=== PATIENT | female | born 1945 | race Caucasian/White ===

== ENCOUNTER 2021-08-01 00:25 | Inpatient (IN) | payer MEDICARE, BC ==
[2021-08-01] MEDS ORDERED: Naloxone 0.4 MG/ML SDV IVPUSH PRN (01:07)
[2021-08-01] MEDS ORDERED: Ondansetron 4 MG/2 ML SDV IVPUSH PRN (01:07)
[2021-08-01] MEDS ORDERED: diphenhydrAMINE 25 MG Cap PO PRN (01:07)
[2021-08-01] MEDS ORDERED: diphenhydrAMINE 50 MG/ML SDV IVPUSH PRN ×2 (01:07→13:00)
[2021-08-01] MEDS ORDERED: HYDROmorphone/Normal Saline 15 MG/30 ML PCA IV SCH (01:15)
[2021-08-01] MEDS: Dextrose 5%-Lactated Ringers 1,000 ML IV SCH ×3 (01:20→22:09)
[2021-08-01] MEDS ORDERED: Bupivacaine 0.5% 50 ML MDV ONE (06:45)
[2021-08-01] MEDS ORDERED: Lidocaine 1% with EPINEPHrine 1:100,000 50 ML MDV ONE (06:45)
[2021-08-01] MEDS ORDERED: Meropenem 500 MG SDV ONE (06:45)
[2021-08-01] MEDS ORDERED: HYDROmorphone/Normal Saline 15 MG/30 ML PCA IV PRN (07:33)
[2021-08-01] MEDS ORDERED: fentaNYL 250 MCG/5 ML SDV ONE ×2 (07:49→10:13)
[2021-08-01] MEDS ORDERED: Glycopyrrolate 0.2 MG/ML 5 ML MDV ONE (07:50)
[2021-08-01] MEDS ORDERED: Propofol 200 MG/20 ML SDV ONE (07:50)
[2021-08-01] MEDS ORDERED: Dexamethasone 4 MG/ML SDV ONE (07:50)
[2021-08-01] MEDS ORDERED: Ondansetron 4 MG/2 ML SDV ONE (07:50)
[2021-08-01] MEDS ORDERED: Rocuronium 50 MG/5 ML Vial ONE (07:50)
[2021-08-01] MEDS ORDERED: Succinylcholine 200 MG/10 ML MDV ONE (07:50)
[2021-08-01] MEDS ORDERED: Neostigmine Methylsulfate 1 MG/ML 5 ML Syringe ONE (07:50)
[2021-08-01] MEDS ORDERED: Propranolol 60 MG Cap.ER PO ONE (08:00)
[2021-08-01] MEDS ORDERED: Naloxone 0.4 MG/ML SDV IV PRN (08:00)
[2021-08-01] MEDS ORDERED: Ketamine 15 MG in Sodium Chloride 0.9% 19.85 ML IV SCH (09:00)
[2021-08-01] MEDS ORDERED: Magnesium Sulfate 2.6 GM in Sodium Chloride 0.9% 100 ML IV SCH (09:00)
[2021-08-01] MEDS ORDERED: Ketamine 500 MG/5 ML MDV IV SCH (09:00)
[2021-08-01] MEDS ORDERED: Albuterol/Ipratropium 3.0-0.5 MG/3 ML Neb Soln INH ONE (09:00)
[2021-08-01] MEDS ORDERED: Magnesium Sulfate 2.8 GM in Sodium Chloride 0.9% 250 ML IV ONE (09:00)
[2021-08-01] MEDS: cefOXitin 2 GM in Sodium Chloride 0.9% 50 ML IV ONE ×2 (10:05→11:28)
[2021-08-01] MEDS ORDERED: Lactated Ringers 1,000 ML ONE (10:38)
[2021-08-01] MEDS ORDERED: hydrOXYzine HCL 100 MG/2 ML SDV IM PRN (13:00)
[2021-08-01] MEDS ORDERED: Labetalol 20 MG/4 ML Syringe IVPUSH PRN (13:00)
[2021-08-01] MEDS ORDERED: Calcium Gluconate 10% 1 GM/10 ML SDV IVPUSH PRN (13:00)
[2021-08-01] MEDS ORDERED: Acetaminophen 500 MG Tab PO PRN (13:00)
[2021-08-01] MEDS ORDERED: Metoclopramide 10 MG/2 ML SDV IVPUSH PRN (13:00)
[2021-08-01] MEDS: Albuterol/Ipratropium 3.0-0.5 MG/3 ML Neb Soln INH SCH ×2 (14:32→21:29)
[2021-08-01] MEDS: Acetaminophen 500 MG Tab PO SCH ×2 (14:42→21:23)
[2021-08-01] MEDS ORDERED: Pantoprazole 40 MG Vial IVPUSH SCH (16:00)
[2021-08-01] MEDS ORDERED: MVI, Adult with Vitamin K 10 ML, Thiamine 200 MG, Zinc/Copper/Manganese/Selenium 1 ML i... IV SCH ×4 (16:00)
[2021-08-01] MEDS: cefOXitin 2 GM in Sodium Chloride 0.9% 50 ML IV SCH ×2 (16:12→22:11)
[2021-08-01] MEDS: Cyclobenzaprine 10 MG Tab PO PRN (16:18)
[2021-08-01] MEDS: Heparin Sodium 5,000 Units/ML Vial SUBCUT SCH (18:14)
[2021-08-01] MEDS ORDERED: Lactated Ringers 500 ML IV SCH (19:30)
[2021-08-01] MEDS ORDERED: Lactated Ringers 500 ML IV ONE (19:40)
[2021-08-02] MEDS ORDERED: Lactated Ringers 500 ML IV ONE (02:40)
[2021-08-02] MEDS ORDERED: Iopamidol 612 MG/ML 50 ML SDV PO STA (03:22)
[2021-08-02] MEDS ORDERED: Nicotine 14 MG/24 Hr Patch TRDERM PRN (03:31)
[2021-08-02] MEDS: cefOXitin 2 GM in Sodium Chloride 0.9% 50 ML IV SCH ×4 (04:25→21:46)
[2021-08-02] MEDS: Heparin Sodium 5,000 Units/ML Vial SUBCUT SCH ×2 (06:19→17:58)
[2021-08-02] MEDS: Acetaminophen 500 MG Tab PO SCH ×3 (06:19→21:44)
[2021-08-02] MEDS: Albuterol/Ipratropium 3.0-0.5 MG/3 ML Neb Soln INH SCH ×4 (07:00→21:44)
[2021-08-02] MEDS: Celecoxib 200 MG Cap PO SCH ×2 (08:52→21:46)
[2021-08-02] MEDS: Docusate Sodium 100 MG Cap PO SCH ×2 (08:53→21:46)
[2021-08-02] MEDS: Bisacodyl 5 MG Tab PO SCH ×2 (08:55→21:44)
[2021-08-02] MEDS: Aspirin 81 MG Tab.EC PO SCH (08:56)
[2021-08-02] MEDS: Propranolol 60 MG Cap.ER PO SCH (08:56)
[2021-08-02] MEDS: Dextrose 5%-Lactated Ringers 1,000 ML IV SCH (09:42)
[2021-08-02] MEDS: Potassium Phos in 0.9 % NaCl 15 MMOL in Premix Bag 1 BAG IV SCH ×6 (09:49→16:57)
--- NOTE | 2021-08-02 10:20 | CR ---
UGI Limited HISTORY: Postbariatric surgery/revision FINDINGS: Patient swallowed water-soluble contrast. Upright views of the abdomen show no evidence of extravasation or obstruction. IMPRESSION: Status post bariatric surgery revision No extravasation or obstruction seen
[2021-08-02] MEDS: Pantoprazole 40 MG Tab.CR PO SCH (12:14)
[2021-08-02] MEDS: Cyclobenzaprine 10 MG Tab PO PRN (12:43)
--- NOTE | 2021-08-02 17:51 | PCM.EKG ---
#1 Interpretation EKG Date: 08/01/21 Time: 07:33 Rhythm: NSR Rate (Beats/Min): 92 [place]: Normal P-Wave: Present QRS: Normal ST-T: Other (Terminal T wave inversion in V1 through V3) QT: Normal NV/PQ Interval: normal Comparison: NA - No Prior EKG
[2021-08-02] MEDS ORDERED: MVI, Adult with Vitamin K 10 ML, Thiamine 200 MG, Zinc/Copper/Manganese/Selenium 1 ML i... IV SCH ×4 (18:00)
[2021-08-03] MEDS: cefOXitin 2 GM in Sodium Chloride 0.9% 50 ML IV SCH ×2 (03:21→09:19)
[2021-08-03] MEDS: Heparin Sodium 5,000 Units/ML Vial SUBCUT SCH ×2 (05:07→17:02)
[2021-08-03] MEDS: Acetaminophen 500 MG Tab PO SCH ×3 (05:07→21:50)
[2021-08-03] MEDS: Albuterol/Ipratropium 3.0-0.5 MG/3 ML Neb Soln INH PRN (05:12)
[2021-08-03] MEDS: Albuterol/Ipratropium 3.0-0.5 MG/3 ML Neb Soln INH SCH ×4 (07:08→20:01)
--- NOTE | 2021-08-03 08:12 | PN ---
DATE OF SERVICE: 08/03/2021 SUBJECTIVE: Paul is postop day 2. She reports her pain is controlled. She states that her cough is what bothers her the most. She states prior to admission to the hospital and surgery, she had a sinus infection and whatever was draining from her sinuses is what she was coughing up. Does have a half pack per day cigarette smoking history times greater than 50 years. Vital signs otherwise have been stable. Oral intake 1930. Urine output via Swann catheter was 2415. REVIEW OF SYSTEMS: Remainder of review of systems negative for any pertinent positives and negatives. OBJECTIVE: GENERAL: Paul Campbell is a pleasant 75-year-old female. She is alert and orientated. VITAL SIGNS: TPR: 97.3, 69, 18. Blood pressure 126/56. HEENT: Negative. NECK: Supple. HEART: Regular rate and rhythm. LUNGS: Clear. ABDOMEN: Dressings dry and intact. Abdominal binder is on. EXTREMITIES: Without peripheral edema. ASSESSMENT: Exploratory laparotomy with: 1. Gastrostomy for decompression of gastric distention. 2. Reduction of small bowel volvulus and closure of internal hernia. 3. Revision of jejunojejunostomy component of the Aden-en-Y gastric bypass. 4. Small bowel strictureplasty. 5. Repair of incarcerated incisional hernia. 6. Repair of incarcerated umbilical hernia. POSTOPERATIVE DIAGNOSES: 1. Small bowel obstruction secondary to volvulus of the biliary pancreatic limb with massive gastric distention, 1400 mL. 2. Focal obstruction jejunojejunostomy. 3. Incarcerated incisional hernia. 4. Incarcerated umbilical hernia. Date of procedure 08/01/2021. Surgeon: González Ramos MD. PLAN: 1. Discontinue Swann catheter. 2. Magnesium 2 g IV q.6 hours x48 hours. 3. Discontinue DENITRATOR OPERATOR and continuous pulse ox. 4. Oxycodone 5 mg q.4 hours p.r.n. pain. 5. Acapella, use 10 times every hour while awake and every 4 hours during the night. 6. We will evaluate p.r.n. or in a.m. Alexandra Lazo PA-C /[id number]
[2021-08-03] MEDS: Bisacodyl 5 MG Tab PO SCH ×2 (08:20→20:01)
[2021-08-03] MEDS: Pantoprazole 40 MG Tab.CR PO SCH (08:20)
[2021-08-03] MEDS: Aspirin 81 MG Tab.EC PO SCH (08:20)
[2021-08-03] MEDS: Celecoxib 200 MG Cap PO SCH ×2 (08:20→20:01)
[2021-08-03] MEDS: Docusate Sodium 100 MG Cap PO SCH ×2 (08:20→20:01)
[2021-08-03] MEDS: Propranolol 60 MG Cap.ER PO SCH (08:20)
--- NOTE | 2021-08-03 08:51 | OR ---
DATE OF PROCEDURE: 08/01/2021 SURGEON: González Ramos MD PREOPERATIVE DIAGNOSIS: Small bowel obstruction. POSTOPERATIVE DIAGNOSES: 1. 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 2. Focal stricture of jejunojejunostomy. 3. Incarcerated incisional hernia. 4. Incarcerated umbilical hernia. OPERATIVE PROCEDURES: Exploratory laparotomy with: 1. Gastrotomy for decompression of gastric distention (05219). 2. Reduction of small bowel volvulus, closure of internal hernia (69415). 3. Revision of jejunojejunostomy component of Aden-en-Y gastric bypass (95787). 4. Small bowel stricturoplasty (39123). 5. Repair of incarcerated incisional hernia (91237). 6. Repair of incarcerated umbilical hernia (85822). ANESTHESIA: General. INDICATIONS FOR PROCEDURE: This is a 75-year-old, 10 years status post laparoscopic Aden-en- Y gastric bypass performed in [place], [place], who presented to the [facility], and was found to have picture of bowel obstruction and was transferred here for definitive care. The plan is to proceed with exploratory laparotomy with release of small bowel obstruction and small bowel resection as needed. The patient still is quite obese and would prefer to have a revision of the jejunojejunostomy if that area of bowel needs to be addressed surgically. Potential risks per se including bleeding, infection, injury to the underlying viscera, leaks from any GI tract closures, problems with recurrent obstruction over time, problems with a revision of the jejunojejunostomy component potentially leading to increased malabsorption and/or frequent loose bowel movements, possibility of cardiopulmonary, septic, or hemorrhagic complications leading to were discussed, and the patient wishes to proceed. DETAILS OF PROCEDURE: The patient was taken to the operating room, placed in a supine position. After general endotracheal anesthesia was induced, a Swann catheter was inserted and the abdomen prepped and draped. An upper midline incision was made from roughly 3 fingerbreadths below the xiphoid down to the umbilicus and carried down through the full- thickness abdominal wall. Two hernias were encountered, 1 was a trocar site hernia in the midportion of that incision. This along with an incarcerated umbilical hernia were dissected free and the contents delivered from the field. These were both repaired at the time of the subsequent fascial closure. Striking finding within the initial exploration was massively distended stomach. This was consistent with a CT scan showing obstruction of biliopancreatic limb, although was found to be viable it was massively distended and gastrotomy over the midbody of the stomach was then made and 1400 mL of bilious material was evacuated from the stomach. Stomach closure was then accomplished with a LISSETTE purple load. The point of obstruction appeared to be in the area of the biliopancreatic limb which had prolapsed through a mesenteric defect near the base of the mesentery. This was reduced and the mesenteric defect then closed with [id number] stitch of 2-0 silk stitch. The patient was noted to have some stricturing at the area of the small bowel that had been involved in the volvulus and this was controlled with opening that midportion of the biliopancreatic limb and firing an internal firing of the LISSETTE 60 mm stapler. The common opening was then closed transversely with the LISSETTE stapler as well and the angles anastomosed and mesenteric defect and stricturoplasty site then reinforced with some 3-0 Vicryl stitch. The jejunojejunostomy itself was also quite distended, and at this point, revision of the jejunojejunostomy component was accomplished with division of the Aden limb just proximal to the jejunojejunostomy. This was then brought down quite a bit more distally where a side-to- side enteroenterostomy was accomplished with internal firing of the Endo-LISSETTE 60 mm stapler. Common opening was then closed transversely with same stapler as well and angles anastomosis and reinforced with some 3-0 Vicryl stitch, and in this case, the mesenteric defect closed with a 2-0 silk stitch. The final Aden limb was 80 cm, biliopancreatic limb 230 cm, and the common limb 270 cm. Abdomen was irrigated with meropenem-containing saline solution. The patient had abundant omentum which was brought down under the incision, which was then closed with a #2 Vicryl stitch at the fascial level which included repair of the above 2 hernias. The subcutaneous tissue was approximated with 2 layers of 3-0 and 4-0 Vicryl stitch deep and the skin with angie. Prior to closure, bilateral transversus abdominis plane blocks were then placed. The patient was taken to the recovery room in satisfactory condition. González Ramos MD /[id number]
[2021-08-03] MEDS ORDERED: Cyanocobalamin (Vitamin B12) 1,000 MCG/ML SDV IM ONE (09:00)
[2021-08-03] MEDS: Dextrose 5%-Lactated Ringers 1,000 ML IV SCH ×2 (09:15→19:41)
[2021-08-03] MEDS: Magnesium Sulfate/Water 2 GM/50 ML BAG IV SCH ×3 (09:16→21:49)
[2021-08-03] MEDS ORDERED: Furosemide 40 MG/4 ML VIAL IVPUSH ONE (10:02)
--- NOTE | 2021-08-03 10:57 | PN ---
DATE OF SERVICE: 08/02/2021 The patient has been afebrile with stable vital signs. Urine output little bit slow, but it has picked up with 2 boluses overnight. We will leave the fairly dehydrated. Creatinine is stable at 0.9. which was likely related to the biliary obstruction associated with the duodenal obstruction, and the patient otherwise looks good. Upper GI x- ray looked satisfactory with good flow through the small bowel and plan will be to maximize activity and work with pulmonary toilet, back down the IV rate later today. Potassium and phosphate are markedly low, we will resupplement them, go over to a step-2 diet. González Ramos MD /[id number]
[2021-08-03] MEDS: oxyCODONE 5 MG Tab PO PRN ×2 (14:12→19:45)
[2021-08-03] MEDS: Cyclobenzaprine 10 MG Tab PO PRN (17:02)
[2021-08-04] MEDS: Albuterol/Ipratropium 3.0-0.5 MG/3 ML Neb Soln INH PRN (03:55)
[2021-08-04] MEDS: oxyCODONE 5 MG Tab PO PRN ×4 (03:55→21:19)
[2021-08-04] MEDS: Magnesium Sulfate/Water 2 GM/50 ML BAG IV SCH ×4 (03:58→21:25)
[2021-08-04] MEDS: Dextrose 5%-Lactated Ringers 1,000 ML IV SCH ×2 (05:40→15:59)
[2021-08-04] MEDS: Acetaminophen 500 MG Tab PO SCH ×3 (05:41→21:16)
[2021-08-04] MEDS: Heparin Sodium 5,000 Units/ML Vial SUBCUT SCH ×2 (05:41→17:24)
[2021-08-04] MEDS: Albuterol/Ipratropium 3.0-0.5 MG/3 ML Neb Soln INH SCH ×4 (07:25→21:20)
[2021-08-04] MEDS ORDERED: Furosemide 40 MG/4 ML VIAL IVPUSH STA (07:31)
[2021-08-04] MEDS: Propranolol 60 MG Cap.ER PO SCH (08:08)
[2021-08-04] MEDS: Pantoprazole 40 MG Tab.CR PO SCH (08:08)
[2021-08-04] MEDS: Docusate Sodium 100 MG Cap PO SCH ×2 (08:09→21:13)
[2021-08-04] MEDS: Aspirin 81 MG Tab.EC PO SCH (08:09)
[2021-08-04] MEDS: Bisacodyl 5 MG Tab PO SCH ×2 (08:09→21:13)
[2021-08-04] MEDS: Celecoxib 200 MG Cap PO SCH ×2 (08:09→21:13)
[2021-08-04] MEDS ORDERED: Furosemide 40 MG/4 ML VIAL IVPUSH SCH (09:00)
[2021-08-04] MEDS: Potassium Chloride 20 MEQ Tab.ER PO SCH ×3 (09:20→21:13)
--- NOTE | 2021-08-04 10:54 | PN ---
DATE OF SERVICE: 08/04/2021 SUBJECTIVE: Paul did have some shortness of breath last evening, was given some Lasix, and this did improve until earlier this morning, and the shortness of breath returned. She did have a nebulizer treatment at that time, has been working on her incentive spirometer. Vital signs have been stable. Pain has been controlled. She does have a productive cough of clear sputum. Lungs sound quite wet. Labs this morning; potassium was 3.5, bilirubin increased just from 2.2 to 3.2, BNP elevated to 3787, albumin 1.9. OBJECTIVE: GENERAL: Paul is a pleasant, 75-year-old female. She is alert, orientated, has a wet sounding cough. VITAL SIGNS: TPR is 97, 64, 16; blood pressure 141/46. HEENT: Negative. NECK: Supple. HEART: Regular rate and rhythm. LUNGS: Reveal rhonchi and rales. She does have good air exchange. ABDOMEN: Dressing dry and intact. Abdominal binder is on. EXTREMITIES: Without peripheral edema. ASSESSMENT: Exploratory laparotomy with: 1. Gastrostomy for decompression of gastric distention. 2. Reduction of small bowel volvulus, closure of internal hernia. 3. Revision of the jejunojejunostomy component of the Aden-en-Y gastric bypass. 4. Small-bowel strictureplasty. 5. Repair of incarcerated incisional hernia. 6. Repair of incarcerated umbilical hernia. POSTOPERATIVE DIAGNOSES: 1. Small-bowel obstruction secondary to volvulus of biliary pancreatic limb with associated massive gastric distention. 2. Focal stricture, jejunojejunostomy. 3. Incarcerated incisional hernia. 4. Incarcerated umbilical hernia. DATE OF PROCEDURE: 08/01/2021 SURGEON: González Ramos MD PLAN: 1. Continue to work on pulmonary status. 2. Lasix 40 mg IV now. 3. KCl 20 mEq p.o. t.i.d. 4. Check CBC, CMP, phos, BNP, and CBC in a.m. If liver function tests continue to elevate, we will check an MRCP. 5. Albumin 25 g q.daily IV until discharge. 6. We will evaluate p.r.n. or in a.m. Alexandra Lazo PA-C /[id number]
[2021-08-05] MEDS: Magnesium Sulfate/Water 2 GM/50 ML BAG IV SCH (03:40)
[2021-08-05] MEDS: Ondansetron 4 MG/2 ML SDV IVPUSH PRN ×2 (03:54→15:54)
[2021-08-05] MEDS: oxyCODONE 5 MG Tab PO PRN ×3 (03:54→21:49)
[2021-08-05] MEDS: Acetaminophen 500 MG Tab PO SCH ×3 (05:59→21:36)
[2021-08-05] MEDS: Heparin Sodium 5,000 Units/ML Vial SUBCUT SCH ×2 (05:59→17:05)
[2021-08-05] MEDS: Albuterol/Ipratropium 3.0-0.5 MG/3 ML Neb Soln INH SCH ×4 (07:22→21:35)
[2021-08-05] MEDS ORDERED: Dextrose 5%-Lactated Ringers 1,000 ML IV SCH (08:03)
[2021-08-05] MEDS ORDERED: Sodium Chloride 0.9% 100 ML IV SCH (08:45)
[2021-08-05] MEDS ORDERED: Iopamidol 755 Mg/ML 100 ML Bottle IV SCH (08:45)
[2021-08-05] MEDS ORDERED: Iopamidol 612 MG/ML 150 ML Bottle IV SCH (09:00)
[2021-08-05] MEDS ORDERED: Furosemide 40 MG/4 ML VIAL IVPUSH ONE (09:00)
--- NOTE | 2021-08-05 09:16 | PN ---
DATE OF SERVICE: 08/05/2021 SUBJECTIVE: Paul reports some more pain in the right upper quadrant. She also continues to have a productive cough with clear sputum. She does not report she is short of breath. Her pulse oximetry is 95% on room air. She has been afebrile, up, ambulating a couple of times, but sits up in the chair for long periods of time. Oral intake 1720, urine output 3425. LABORATORY DATA: Today, hemoglobin 10.7, potassium 3.9. Bilirubin elevated from 3.2 to 5, AST 70, ALT 84, alkaline phosphatase 239. BNP 5050. OBJECTIVE: GENERAL: Paul Campbell is a 75-year-old female. She is alert, orientated. VITAL SIGNS: TPR is 97.9, 70, 16. Blood pressure 141/59. HEENT: Negative. NECK: Supple. HEART: Regular rate and rhythm. LUNGS: Reveal rales, rhonchi, and wheezing. She does not sound as wet as she was yesterday and assessed before her nebulizer treatment. ABDOMEN: Slightly distended. Normal postop tenderness. Abdominal binder is on. EXTREMITIES: Without peripheral edema. ASSESSMENT: 1. Elevated liver function tests. 2. Productive cough. 3. Exploratory laparotomy with: a. Gastrostomy for decompression of gastric distention. b. Reduction of small bowel volvulus, closure of internal hernia. c. Revision of the jejunojejunostomy component of the Aden-en-Y gastric bypass. d. Small bowel strictureplasty. e. Repair of incarcerated incisional hernia. f. Repair of incarcerated umbilical hernia. POSTOPERATIVE DIAGNOSES: 1. 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 2. Focal stricture, jejunostomy. 3. Incarcerated incisional hernia. 4. Incarcerated umbilical hernia. Date of procedure: 08/01/2021. Surgeon: González Ramos MD PLAN: 1. Check MRCP in a.m., 1st available appointment. 2. Check CT with IV and oral contrast. 3. Lasix 40 mg IV now. 4. Check chest x-ray, PA and lateral. 5. Decrease IV to TKO. 6. Check CBC, CMP, mag, phos, and BNP in a.m. 7. Potassium is oral 20 mEq three times a day, to continue with that. 8. Continue use of Acapella. 9. We will evaluate p.r.n. or in a.m. Alexandra Lazo PA-C /[id number]
[2021-08-05] MEDS: Pantoprazole 40 MG Tab.CR PO SCH (09:59)
[2021-08-05] MEDS: Sodium Chloride 0.9% 10 ML Syringe FLUSH ONE ×2 (09:59→10:52)
--- NOTE | 2021-08-05 11:03 | CR ---
CHEST: 2 view CLINICAL HISTORY:SOB COMPARISON:None FINDINGS: Patient has moderate bilateral pleural effusions. The heart is enlarged. Pulmonary vascularity is cephalized. There is some generalized interstitial prominence. There are atherosclerotic changes in the aorta. Impression: Vascular congestion and interstitial prominence with bilateral pleural effusions suggest CHF.
[2021-08-05] MEDS: Propranolol 60 MG Cap.ER PO SCH (11:08)
[2021-08-05] MEDS: Potassium Chloride 20 MEQ Tab.ER PO SCH ×3 (11:08→21:36)
[2021-08-05] MEDS: Bisacodyl 5 MG Tab PO SCH ×2 (11:09→21:35)
[2021-08-05] MEDS: Celecoxib 200 MG Cap PO SCH ×2 (11:09→21:36)
[2021-08-05] MEDS: Aspirin 81 MG Tab.EC PO SCH (11:09)
[2021-08-05] MEDS: Docusate Sodium 100 MG Cap PO SCH ×2 (11:09→21:36)
--- NOTE | 2021-08-05 11:17 | CT ---
Abdomen Pelvis w Cont CLINICAL HISTORY: Increased LFTs, pain COMPARISON: 07/31/2021. TECHNIQUE: Transverse scans were obtained from the base of the lungs to the pubic symphysis following oral contrast and IV infusion of contrast.Auto dosage reduction and iterative reconstructiontechniques employed. FINDINGS: There is persistent moderate distention of the excluded portion of the stomach and descending and proximal transverse duodenum. There is also dilatation of the common bile duct and intrahepatic biliary radicles. Patient has the moderate right pleural effusion. There is a small left effusion. There are some patchy groundglass opacities in both mid lung reynaga. There is some consolidation and/or compressive atelectasis in the basal segments bilaterally. This is new since prior study. The liver shows moderate intrahepatic ductal dilatation. The gallbladder has been removed. The spleen has a normal size and shape. The pancreas is free of mass or inflammatory change. The adrenal glands appear normal bilaterally . The kidneys contain multiple cysts bilaterally. The ureters have normal course and caliber. The bladder has a normal contour. There is a small amount of free fluid in the low pelvis.. There is some mildly dominant tortuous vessels in the adnexal regions bilaterally. This is greater in the left. 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 The aorta shows moderate diffuse atheromatous change without aneurysm. There are a few scattered pericaval and periaortic lymph nodes. These are nonspecific. There is some generalized subcutaneous edema which was not present on prior study. IMPRESSION: Persistent moderate distention of the excluded portion of the stomach, ascending and proximal transverse duodenum similar to prior study. This reverts to a more normal caliber as it crosses the aorta and SMA. There is no obvious SMA impingement. Moderate dilatation of the common bile duct and intrahepatic biliary radicles similar to prior study. There are some free fluid around the liver and in the low pelvis. Interval development of [id number] pleural effusions and patchy groundglass opacifications in both lower lung reynaga. Bilateral effusions with ascites and subcutaneous edema may represent an element of anasarca
[2021-08-05] MEDS: Levofloxacin/Dextrose 5%-Water 500 MG in Premix Bag 1 BAG IV SCH (14:29)
[2021-08-06] MEDS: Acetaminophen 500 MG Tab PO SCH ×2 (05:00→16:27)
[2021-08-06] MEDS: oxyCODONE 5 MG Tab PO PRN ×3 (05:00→20:29)
[2021-08-06] MEDS: Heparin Sodium 5,000 Units/ML Vial SUBCUT SCH ×2 (05:03→18:13)
[2021-08-06] MEDS: Albuterol/Ipratropium 3.0-0.5 MG/3 ML Neb Soln INH SCH ×4 (07:14→20:30)
--- NOTE | 2021-08-06 08:18 | PN ---
DATE OF SERVICE: 08/06/2021 SUBJECTIVE: Paul's vital signs have been stable. She has been afebrile. She has been up ambulating in her room. Oral intake 1290, urine output 2950, and she has had 3 bowel movements in the past 24 hours. Reports pain in her mid incision area and radiates to the right. States her cough is less and thinks she is getting better. She does continue to cough up some clear thick phlegm. Has been working on her Acapella and has ambulated twice. LABORATORY DATA: Hemoglobin is stable at 10.5. Sodium is low today at 134. Total bilirubin is 5.8, up from 5 yesterday. AST elevated at 103, ALT 82, alkaline phosphatase 285, and BNP is 3967, decreased from 5050 yesterday. Total protein 5.1, albumin 2.3. OBJECTIVE: GENERAL: Paul Campbell is a 75-year-old female. She is alert and orientated. VITAL SIGNS: TPR is 96.9, 70, and 18. Blood pressure is 156/50. HEENT: Negative. Slight jaundice noted. NECK: Supple. HEART: Regular rate and rhythm. LUNGS: Reveal less rhonchi. No wheezing heard and she does not sound as wet as she did yesterday. Less short of breath with talking. She has had 1 dose of Levaquin 500 mg IV. ABDOMEN: Less distended. Normal postop tenderness. Binder is on. She does have an Aquacel dressing. There is some blood staining on that. This will be changed today. EXTREMITIES: Without peripheral edema. ASSESSMENT: 1. Continued elevation of liver function tests. 2. Moderate right pleural effusion and small left pleural effusion. Patchy ground-glass opacities in both mid lung reynaga. There is consolidation or compression atelectasis in the basal segments bilaterally. CT scan 08/05/2021. PLAN: 1. Continue IV Levaquin 500 mg. 2. MRCP will be done today. Call results. After MRCP, Lasix 40 mg IV and check CBC, CMP, mag, phos, and BNP in a.m. After consulting with González Ramos MD, surgeon, if MRCP shows a biliary stone, to transfer patient to [facility]. We will evaluate after MRCP. CT scan impression showed: 1. Liver shows moderate intrahepatic ductal dilatation. Spleen is normal in size. Persistent moderate distention of the excluded portion of the stomach, ascending and proximal transverse duodenum, which is similar to prior study. This reverts to a more normal caliber as it crosses the aorta and SMA. There is no SMA impingement. 2. Moderate dilatation of the common bile duct and intrahepatic biliary radiates similar to prior study. 3. There are some free fluid in the liver and the low pelvis. This was read by Portillo Marks MD, radiologist on 08/05/2021. Alexandra Lazo PA-C /[id number]
[2021-08-06] MEDS ORDERED: Furosemide 40 MG/4 ML VIAL IVPUSH ONE (10:00)
[2021-08-06] MEDS: Potassium Chloride 20 MEQ Tab.ER PO SCH ×3 (11:44→20:23)
[2021-08-06] MEDS: Pantoprazole 40 MG Tab.CR PO SCH (11:44)
[2021-08-06] MEDS: Aspirin 81 MG Tab.EC PO SCH (11:44)
[2021-08-06] MEDS: Docusate Sodium 100 MG Cap PO SCH ×2 (11:44→20:19)
[2021-08-06] MEDS: Celecoxib 200 MG Cap PO SCH ×2 (11:45→20:23)
[2021-08-06] MEDS: Propranolol 60 MG Cap.ER PO SCH (11:46)
--- NOTE | 2021-08-06 14:24 | MR ---
Cholangiopancreatography CLINICAL HISTORY: Increase in LFTs and bilirubin, increasing abdominal pain COMPARISON: CT abdomen 08/05/2021 TECHNIQUE: Multiple images of the biliary system were obtained. All images were obtained on a 1.5 Mary Siemens unit. FINDINGS: There is moderate diffuse intrahepatic ductal dilatation. This is also seen on recent CT. Patient has had a previous cholecystectomy. The common bile duct is dilated at 9 mm. This tapers rather probably at the ampulla. No filling defects are seen in the common duct The pancreatic duct is normal. There is moderate fluid distention of the stomach and descending duodenum as well as the rock small transverse duodenum. It tapers as it crosses the aorta behind the SMA. There is no obvious "nut and bolt assembler" impingement IMPRESSION: Intrahepatic and common bile duct dilatation to the level of the Sphincter of Mathew. Ampullary stenosis or small ampullary lesion is not excluded. Some of this dilatation may be due to the accompanying duodenal distention. Gastric and duodenal distention of uncertain etiology. This does taper relatively abruptly in the proximal transverse duodenum. EGD should be considered. Previous cholecystectomy
[2021-08-06] MEDS: Levofloxacin/Dextrose 5%-Water 500 MG in Premix Bag 1 BAG IV SCH (15:07)
[2021-08-07] MEDS: Heparin Sodium 5,000 Units/ML Vial SUBCUT SCH ×2 (06:39→18:12)
[2021-08-07] MEDS: Albuterol/Ipratropium 3.0-0.5 MG/3 ML Neb Soln INH SCH ×4 (07:32→21:13)
--- NOTE | 2021-08-07 07:46 | PN ---
DATE OF SERVICE: 08/07/2021 SUBJECTIVE: Paul is sitting up in a chair. She is much more alert. Breathing is improved. She states the pain is less and she is feeling better. OBJECTIVE: GENERAL: Paul Campbell is a pleasant 75-year-old female. VITAL SIGNS: Temperature is 96.3, 78, 18, blood pressure 134/49. HEENT: Negative. NECK: Supple. HEART: Regular rate and rhythm. LUNGS: Better air exchange. She does have decreased breath sounds, more in the right lower lobe, but improved. Rhonchi with coughing, but good air exchange. ABDOMEN: Aquacel dressing is on. Abdominal binder is on. EXTREMITIES: Without peripheral edema. LABORATORY DATA: Hemoglobin stable at 10.3. Magnesium 1.5. Bilirubin has decreased to 3.4 from 5.8. Alkaline phosphatase 359. ALT is normal at 78 and AST 91. BNP is 5664. ASSESSMENT: 1. Elevated bilirubin and liver function tests, improving. 2. Moderate right pleural effusion and small left pleural effusion, patchy ground opacities in both mid lung reynaga, consolidation in base segments bilaterally. CT scan on 08/05/2021. 3. Exploratory laparotomy with: a. Gastrostomy for decompression of gastric distention. b. Reduction of small bowel volvulus, closure of internal hernia. c. Revision of jejunojejunostomy component of Aden-en-Y gastric bypass. d. Small bowel strictureplasty. e. Repair of incarcerated incisional hernia. f. Repair of incarcerated umbilical hernia. POSTOPERATIVE DIAGNOSES: 1. 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 2. Focal stricture of jejunojejunostomy. 3. Incarcerated incisional hernia. 4. Incarcerated umbilical hernia. DATE OF PROCEDURE: 08/01/2021. SURGEON: González Ramos MD. PLAN: 1. Magnesium 2 g IV q.6 hours x72 hours. 2. Lasix 40 mg IV 1 time today. 3. CBC, CMP, phos, and BNP in a.m. 4. Continue to work on lungs with ambulation and use of Acapella, which she has been doing a good job on. 5. We will evaluate p.r.n. or in a.m. Alexandra Lazo PA-C /[id number]
[2021-08-07] MEDS: oxyCODONE 5 MG Tab PO PRN ×2 (08:11→15:48)
[2021-08-07] MEDS: Docusate Sodium 100 MG Cap PO SCH ×2 (08:11→21:13)
[2021-08-07] MEDS: Celecoxib 200 MG Cap PO SCH ×2 (08:11→21:13)
[2021-08-07] MEDS: Pantoprazole 40 MG Tab.CR PO SCH (08:11)
[2021-08-07] MEDS: Potassium Chloride 20 MEQ Tab.ER PO SCH ×3 (08:12→21:13)
[2021-08-07] MEDS ORDERED: Furosemide 40 MG/4 ML VIAL IVPUSH ONE (08:30)
[2021-08-07] MEDS: Propranolol 60 MG Cap.ER PO SCH (08:31)
[2021-08-07] MEDS: Aspirin 81 MG Tab.EC PO SCH (08:32)
[2021-08-07] MEDS: Magnesium Sulfate/Water 2 GM/50 ML BAG IV SCH ×3 (12:04→21:13)
[2021-08-07] MEDS: Levofloxacin/Dextrose 5%-Water 500 MG in Premix Bag 1 BAG IV SCH (14:39)
[2021-08-08] MEDS: Magnesium Sulfate/Water 2 GM/50 ML BAG IV SCH (04:30)
[2021-08-08] MEDS: Heparin Sodium 5,000 Units/ML Vial SUBCUT SCH ×3 (04:32→17:28)
[2021-08-08] MEDS ORDERED: Furosemide 40 MG/4 ML VIAL IVPUSH ONE (06:47)
[2021-08-08] MEDS ORDERED: Calcium Carbonate 500 MG Tab.Chew PO PRN (06:48)
[2021-08-08] MEDS: Albuterol/Ipratropium 3.0-0.5 MG/3 ML Neb Soln INH SCH ×4 (07:17→20:41)
[2021-08-08] MEDS: Pantoprazole 40 MG Tab.CR PO SCH ×2 (07:31→17:28)
[2021-08-08] MEDS: oxyCODONE 5 MG Tab PO PRN ×3 (07:36→20:32)
--- NOTE | 2021-08-08 07:44 | PN ---
DATE OF SERVICE: 08/08/2021 SUBJECTIVE: Paul is sitting up in the chair this morning. She reports kind of burning empty feeling in her stomach. She states that she notices it more with the magnesium she thinks. Denies any pain. Still remains to be short of breath with or without activity. Oral intake was 2650 and her urine output 4500. She has had 1 bowel movement. She has no other concerns or questions. OBJECTIVE: GENERAL: Paul Campbell is a pleasant 75-year-old female. She is alert and orientated, sitting up. Color is a little bit jaundiced. VITAL SIGNS: TPR 97.7, 73, 16; blood pressure 149/63, O2 sats by pulse oximetry is 92% on 2 L of O2. HEENT: Negative. NECK: Supple. HEART: Regular rate and rhythm. LUNGS: Reveal decreased breath sounds bilaterally, they are slowly improving, less wet sounding. She does have wheezing with forced expiration and rhonchi with coughing. ABDOMEN: Dressing dry and intact. Abdominal binder is on. EXTREMITIES: Without peripheral edema. ASSESSMENT: 1. Elevated bilirubin and liver function tests, improving. 2. Moderate right pleural effusion and small left pleural effusion, patchy ground opacities in both mid lungs, consolidation in base segments bilaterally, noted on CT scan 08/05/2021. 3. Exploratory laparotomy with: a. Gastrostomy for decompression of gastric distention. b. Reduction of small bowel volvulus, closure of internal ring. c. Revision of jejunojejunostomy component of the Aden-en-Y gastric bypass. d. Small bowel strictureplasty. e. Repair of incarcerated incisional hernia. f. Repair of incarcerated umbilical hernia. POSTOPERATIVE DIAGNOSES: 1. Small-bowel obstruction secondary to volvulus of biliary pancreatic limb with associated massive gastric distention. 2. Focal stricture jejunojejunostomy. 3. Incarcerated incisional hernia. 4. Incarcerated umbilical hernia. DATE OF PROCEDURE: 08/01/2021 SURGEON: González Ramos MD PLAN: 1. Tums 1000 mg every 2 hours p.r.n. burning in stomach, may leave at bedside. 2. Increase Protonix 40 mg p.o. b.i.d. 3. Stop IV magnesium. 4. Magnesium oxide p.o. 400 mg daily. 5. Discontinue Celebrex. 6. Discontinue albumin. 7. Lasix 40 mg IV 1 time in a.m. Nursing will evaluate O2 saturation level without O2 and we will evaluate p.r.n. or in a.m. Alexandra Lazo PA-C /[id number]
[2021-08-08] MEDS: Aspirin 81 MG Tab.EC PO SCH (09:36)
[2021-08-08] MEDS: Potassium Chloride 20 MEQ Tab.ER PO SCH ×3 (09:36→20:32)
[2021-08-08] MEDS: Docusate Sodium 100 MG Cap PO SCH ×2 (09:36→20:32)
[2021-08-08] MEDS: Magnesium Oxide 400 MG Tab PO SCH (09:37)
[2021-08-08] MEDS: Propranolol 60 MG Cap.ER PO SCH (09:37)
[2021-08-08] MEDS: Levofloxacin/Dextrose 5%-Water 500 MG in Premix Bag 1 BAG IV SCH (13:16)
[2021-08-09] MEDS: oxyCODONE 5 MG Tab PO PRN ×4 (00:35→21:34)
[2021-08-09] MEDS: Albuterol/Ipratropium 3.0-0.5 MG/3 ML Neb Soln INH SCH ×4 (07:12→20:08)
[2021-08-09] MEDS: Heparin Sodium 5,000 Units/ML Vial SUBCUT SCH ×2 (07:15→17:17)
--- NOTE | 2021-08-09 07:15 | PN ---
DATE OF SERVICE: 08/09/2021 Paul states she is feeling better. Vital signs have been stable. She has been afebrile. Oral intake 1700, urine output 2800, and she did have 1 bowel movement within the past 24 hours. States her breathing is good on 3 L of nasal cannula O2. She was evaluated yesterday for home O2. LABS: Hemoglobin stable at 10.7, bilirubin did increase to 5, AST 70, ALT 84, and alkaline phosphatase 239. BNP increased to 5050. OBJECTIVE: Paul Campbell is a 75-year-old female. She is alert and orientated, sitting up in the chair. TPR is 96.2, 82, 16, and blood pressure 132/57. Color is jaundiced. Sclera jaundice. HEART: Regular rate and rhythm. LUNGS: Continued to reveal decreased breath sounds in the bases with some rhonchi, but much improved. Better air exchange. ABDOMEN: Dressing dry and intact. Abdominal binder is on. EXTREMITIES: Without peripheral edema. ASSESSMENT: 1. Elevated bilirubin and liver function tests. 2. Moderate right pleural effusion and small left pleural effusion. Patchy ground opacities in both mid lungs, consolidation of both segments bilaterally noted on CT 08/05/2021. 3. Exploratory laparotomy with gastrostomy for: a. Decompression of gastric distention. b. Reduction of small bowel volvulus, closure of internal ring. c. Revision of the jejunojejunostomy component of the Aden-en-Y gastric bypass. d. Small bowel strictureplasty. e. Repair of incarcerated incisional hernia. f. Repair of incarcerated umbilical hernia. POSTOPERATIVE DIAGNOSES: 1. 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 2. Focal stricture jejunojejunostomy. 3. Incarcerated incisional hernia. 4. Incarcerated umbilical hernia. DATE OF PROCEDURE: 08/01/2021. SURGEON: González Ramos MD. PLAN: 1. Consult with Korey Tompkins MD in regard to elevated liver function tests. Of note, report from may be obstruction of the proximal transverse duodenum stricture or annular mucosal lesion. 2. Lasix 40 mg now and at 2:00 p.m. Check CBC, CMP, mag, and phos in a.m. Alexandra Lazo PA-C /[id number]
[2021-08-09] MEDS: Pantoprazole 40 MG Tab.CR PO SCH ×3 (07:44→17:17)
[2021-08-09] MEDS ORDERED: Furosemide 40 MG/4 ML VIAL IVPUSH SCH (09:00)
[2021-08-09] MEDS: Potassium Chloride 20 MEQ Tab.ER PO SCH ×3 (09:36→20:02)
[2021-08-09] MEDS: Docusate Sodium 100 MG Cap PO SCH ×2 (09:36→20:02)
[2021-08-09] MEDS: Aspirin 81 MG Tab.EC PO SCH (09:36)
[2021-08-09] MEDS: Magnesium Oxide 400 MG Tab PO SCH (09:37)
[2021-08-09] MEDS: Furosemide 40 MG/4 ML VIAL IVPUSH SCH ×2 (11:01→17:16)
[2021-08-09] MEDS ORDERED: Propofol 200 MG/20 ML SDV ONE (12:01)
[2021-08-09] MEDS: Propranolol 60 MG Cap.ER PO SCH (13:54)
[2021-08-09] MEDS: Levofloxacin/Dextrose 5%-Water 500 MG in Premix Bag 1 BAG IV SCH (13:56)
[2021-08-09] MEDS: Lactated Ringers 1,000 ML IV SCH (20:08)
[2021-08-10] MEDS ORDERED: Ondansetron 4 MG Tab.DIS PO PRN (02:06)
[2021-08-10] MEDS ORDERED: Metoclopramide 10 MG Tab PO PRN (02:12)
[2021-08-10] MEDS: oxyCODONE 5 MG Tab PO PRN ×3 (02:19→20:10)
[2021-08-10] MEDS: Heparin Sodium 5,000 Units/ML Vial SUBCUT SCH ×2 (05:35→17:31)
[2021-08-10] MEDS ORDERED: Furosemide 40 MG/4 ML VIAL IVPUSH ONE (06:54)
[2021-08-10] MEDS ORDERED: Magnesium Sulfate/Water 2 GM/50 ML BAG IV SCH (07:00)
[2021-08-10] MEDS: Albuterol/Ipratropium 3.0-0.5 MG/3 ML Neb Soln INH SCH ×4 (07:07→20:12)
[2021-08-10] MEDS: Pantoprazole 40 MG Tab.CR PO SCH ×2 (07:32→17:31)
--- NOTE | 2021-08-10 07:41 | PN ---
DATE OF SERVICE: 08/10/2021 SUBJECTIVE: Paul had an upper endoscopy procedure yesterday by Korey Tompkins MD. Stated exam was within normal limits. No reason explained why the bilirubin would be elevated. This is per verbal report. Dictation pending. Paul's vital signs have been stable. Oral intake on a step 2 gastric bypass diet was 1120. Urine output 2600. Vital signs have been stable on 2 L of O2. LABS: Hemoglobin 10.4, total bilirubin 5.3, AST 276, ALT 157, alkaline phosphatase 1034, and BNP 1018. REVIEW OF SYSTEMS: Remainder of review of systems negative for any pertinent positives and negatives. OBJECTIVE: GENERAL: Paul Campbell is a pleasant 75-year-old female, alert and orientated. She remains to be jaundiced. VITAL SIGNS: TPR: 98.1, 64, 16. Blood pressure 130/54, O2 sats by pulse oximetry is 92% on 2 L. HEENT: Negative. NECK: Supple. HEART: Regular rate and rhythm. LUNGS: Show much improvement. Better air exchange. ABDOMEN: Aquacel dressing is on. It is clean and dry. Abdominal binder is on. EXTREMITIES: Without peripheral edema. ASSESSMENT: 1. Upper endoscopy 08/09/2021, Korey Tompkins MD. 2. Elevated bilirubin and liver function tests. 3. Moderate right pleural effusion and small left pleural effusion. Patchy ground opacities in both mid lungs. Consolidation of both segments bilaterally noted on CT scan 08/05/2021. 4. Exploratory laparotomy with gastrostomy for: a. Decompression of gastric distention. b. Reduction of small bowel volvulus, closure of internal ring. c. Revision of the jejunojejunostomy component of the Aden-en-Y gastric bypass. d. Small bowel strictureplasty. e. Repair of incarcerated incisional hernia. f. Repair of incarcerated umbilical hernia. POSTOPERATIVE DIAGNOSES: 1. 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 2. Focal stricture jejunojejunostomy. 3. Incarcerated incisional hernia. 4. Incarcerated umbilical hernia. Date of procedure 08/01/2021. Surgeon: González Ramos MD. PLAN: Will be to transfer to a facility that can evaluate her elevated bilirubin. [facility] was called yesterday and was unable to accept the patient. Will seek other facilities for transfer via ambulance today. Continue use of incentive spirometer, Lasix 40 mg a.m., and if the patient is still here tomorrow, we will check CBC, CMP, mag, and phos. We will evaluate p.r.n. or in a.m. Alexandra Lazo PA-C /[id number]
[2021-08-10] MEDS: Magnesium Sulfate/Water 2 GM/50 ML BAG IV SCH ×3 (07:45→20:11)
[2021-08-10] MEDS: Propranolol 60 MG Cap.ER PO SCH (09:20)
[2021-08-10] MEDS: Aspirin 81 MG Tab.EC PO SCH (09:20)
[2021-08-10] MEDS: Docusate Sodium 100 MG Cap PO SCH ×2 (09:20→20:12)
[2021-08-10] MEDS: Magnesium Oxide 400 MG Tab PO SCH (09:20)
[2021-08-10] MEDS: Potassium Chloride 20 MEQ Tab.ER PO SCH ×3 (09:21→20:12)
[2021-08-10] MEDS ORDERED: Iopamidol 612 MG/ML 50 ML SDV PO ONE (13:14)
[2021-08-10] MEDS ORDERED: Iopamidol 612 MG/ML 500 ML Multipack Bottle IV ONE (13:45)
[2021-08-10] MEDS ORDERED: Sodium Chloride 0.9% 80 ML IV SCH (13:45)
[2021-08-10] MEDS: Levofloxacin/Dextrose 5%-Water 500 MG in Premix Bag 1 BAG IV SCH (14:40)
--- NOTE | 2021-08-10 15:41 | CT ---
Abdomen Pelvis w Cont CLINICAL HISTORY: Increased LFTs postop COMPARISON: 08/05/2021. TECHNIQUE: Transverse scans were obtained from the base of the lungs to the pubic symphysis following oral contrast and IV infusion of contrast.Auto dosage reduction and iterative reconstructiontechniques employed. FINDINGS: The lung bases show some resolution of the groundglass opacities seen in the both upper lobe and right middle lobe. There is persistent consolidation and/or atelectasis in both lung bases. This shows some minimal improvement since prior study. There is a persistent small right pleural effusion. The liver shows persistent diffuse intrahepatic ductal dilatation similar to prior study there is persistent common duct dilatation similar to prior study. The gallbladder has been removed. The patient is status post Aden-en-Y. There is persistent distention of the excluded portion of the stomach as well as the descending and proximal transverse duodenum where it tapers. This configuration is similar to prior study. The remainder of the small bowel has a normal contour. The spleen has normal size and shape. The pancreas shows no significant ductal prominence.. The kidneys show bilateral cysts. IMPRESSION: Status post bariatric surgery with Aden-en-Y. There is persistent moderate distention of the excluded portion of the stomach descending duodenum and proximal transverse duodenum where the lumen tapers relatively abruptly. There is no significant luminal content the distal to this point down to the level of the Aden-en-Y anastomosis. No definite focal mass is identified.
[2021-08-10] MEDS: Lactated Ringers 1,000 ML IV SCH (20:16)
[2021-08-11] MEDS: Magnesium Sulfate/Water 2 GM/50 ML BAG IV SCH ×3 (02:23→13:49)
[2021-08-11] MEDS: Heparin Sodium 5,000 Units/ML Vial SUBCUT SCH ×2 (05:59→18:51)
[2021-08-11] MEDS ORDERED: Furosemide 40 MG/4 ML VIAL IVPUSH ONE (06:48)
[2021-08-11] MEDS: Albuterol/Ipratropium 3.0-0.5 MG/3 ML Neb Soln INH SCH ×3 (07:25→14:21)
--- NOTE | 2021-08-11 07:31 | PN ---
DATE OF SERVICE: 08/11/2021 Paul had a repeat CT scan yesterday prior to Dr. Korey Tompkins seen her and basically showed a persistent moderate distention of excluded portion of the stomach, descending duodenum, and proximal transverse duodenum where the lumen tapers relatively and abruptly. Liver function tests this morning; potassium 4.3, bilirubin 5.4, AST 265, ALT 158, and alkaline phosphatase 979. BNP is 602. Paul reports very minimal abdominal pain. Oral intake 2030. Urine output 4025. Last bowel movement was on 08/08/2021. REVIEW OF SYSTEMS: Remainder of review of systems negative for any pertinent positives and negatives. OBJECTIVE: Paul is a pleasant 75-year-old female. She is alert and orientated. TPR is 96.7, 64, 16, blood pressure 137/59, and O2 by pulse oximetry is 91% on 2 L. HEENT: Negative. NECK: Supple. HEART: Regular rate and rhythm. LUNGS: Clear with only rhonchi with coughing in the upper lobes. ABDOMEN: Soft, nondistended, and nontender. EXTREMITIES: There is virtually no peripheral edema, but you can see where the elastic of her stockings are above her ankles. ASSESSMENT: 1. Upper endoscopy on 08/09/2021, Dr. Korey Tompkins. 2. Elevated bilirubin and liver function tests. 3. Moderate right pleural effusion and small left pleural effusion. Patchy ground opacities in both lungs. Consolidation of both segments bilaterally noted on CT scan on 08/05/2021 for exploratory laparotomy with gastrostomy for: a. Decompression of gastric distention. b. Reduction of small bowel volvulus, closure of internal ring. c. Revision of the jejunojejunostomy component of the Aden-en-Y gastric bypass. d. Small bowel stricturoplasty. e. Repair of incarcerated incisional hernia. f. Repair of incarcerated umbilical hernia. POSTOPERATIVE DIAGNOSES: 1. Small bowel obstruction secondary to volvulus of the biliary pancreatic limb with associated massive gastric distention. 2. Focal stricture jejunojejunostomy. 3. Incarcerated incisional hernia. 4. Incarcerated umbilical hernia. DATE OF PROCEDURE: 08/01/2021. SURGEON: González Ramos MD PLAN: 1. DC Levaquin. 2. Continue to schedule ERCP consider the patient to go to facility to have ERCP and return to [place]. 3. Labs; check CBC, CMP, phos, and BNP in a.m. Dulcolax 2 tabs b.i.d. until the patient has bowel movement. 4. We will evaluate p.r.n. or in a.. Alexandra Lazo PA-C /[id number]
[2021-08-11] MEDS: Pantoprazole 40 MG Tab.CR PO SCH ×2 (07:39→16:32)
[2021-08-11] MEDS: Docusate Sodium 100 MG Cap PO SCH (08:38)
[2021-08-11] MEDS: Potassium Chloride 20 MEQ Tab.ER PO SCH ×2 (08:39→13:49)
[2021-08-11] MEDS: Magnesium Oxide 400 MG Tab PO SCH (08:39)
[2021-08-11] MEDS: Aspirin 81 MG Tab.EC PO SCH (08:39)
[2021-08-11] MEDS: Propranolol 60 MG Cap.ER PO SCH (08:39)
[2021-08-11] MEDS: oxyCODONE 5 MG Tab PO PRN ×2 (10:17→16:36)
--- NOTE | 2021-08-11 15:54 | DISCH ---
ADMISSION DIAGNOSIS: Small-bowel obstruction secondary to volvulus of the biliopancreatic limb with associated massive gastric distention, SP Aden-en-Y gastric bypass surgery, unspecified surgical malabsorption, B12 deficiency, nicotine addiction, hypercholesterolemia, and hypertension. DISCHARGE DIAGNOSES: 1. Upper endoscopy, 08/09/2021, Dr. Korey Tompkins. 2. Elevated bilirubin and liver function tests. Moderate right pleural effusion and small left pleural effusion. Patchy ground opacities of both lung consolidation of both segments bilaterally noted on CT scan on 08/05/2021, resolving. 3. Exploratory laparotomy with gastrostomy for. a. A. Decompression gastric distention. b. B. Reduction of small-bowel volvulus, closure of internal hernia. c. C. Revision of the jejunojejunostomy component of the Aden-en-Y gastric bypass. d. D. Small-bowel stricture plasty. e. E. Repair of incarcerated incisional hernia. f. F. Repair of incarcerated umbilical hernia. POSTOPERATIVE DIAGNOSES: 1. Small-bowel obstruction secondary to volvulus of the biliary pancreatic limb with associated massive gastric distention. 2. Small-bowel stricture of jejunojejunostomy. 3. Small incarcerated incisional hernia. 4. Incarcerated umbilical hernia. DATE OF PROCEDURE: 08/01/2021. SURGEON: González Ramos MD. HISTORY: Paul Campbell is a 75-year-old female, who presented to [facility] from [facility] via ambulance with a small-bowel obstruction. She had a Aden- en-Y gastric bypass surgery approximately 10 years ago at [place], [place]. After preoperative evaluation and discussion of possible risks and possible complications, she wished to proceed with surgical procedure. HOSPITAL COURSE: Paul had her surgery on 08/01/2021. She had no operative complications. On postoperative day #1, she was afebrile. Urinary output was diminished, so she had two boluses overnight. Swann catheter was left in to measure accurate urine output. Upper GI looked normal. Potassium and phosphate were replaced and she was started on a step 2 gastric bypass diet without cereal. On postoperative day 2, Paul reported pain was controlled. She states her cough is what bothers her most. She does have a half pack cigarette smoking history greater than 50 years. She was started on Acapella along with incentive spirometer, DuoNeb, and aggressive pulmonary and staff was working aggressively with her pulmonary function. Swann catheter was discontinued. Magnesium was replaced and she was started on oral pain medication after E [employer] was discontinued. On postoperative day 3, BNP was elevated. She was given one dose of Lasix 40 mg IV and started on albumin 25 g IV daily and potassium was replaced empirically. On postoperative day 4, Paul reported more pain in the right upper quadrant. Continued to have a productive cough. Bilirubin did elevate from 3.2 to 5. Liver function tests, AST 70, ALT 84, alkaline phosphatase 239. BNP was 5050. MRCP was ordered for a.m. She did have a CT scan with IV and oral contrast. Lasix 40 mg was given. IV was changed to TKO. On postoperative day 5, bilirubin went from 5 to 5.8, AST 103, ALT 82, alkaline phosphatase 285. BNP is 3967. CT scan showed moderate intrahepatic ductal dilatation. Spleen was normal and persistent moderate distention excluded portion of the stomach. Moderate dilatation of the common duct and intrahepatic biliary radiates similar to prior study. On 08/06/2021. CT was read later in the afternoon and the impression was intrahepatic and common bile duct dilatation to the level of the sphincter of Oddi. Ampullary stenosis of small ampullary lesion is not excluded. Some of this dilation may be due to the accompanying duodenal distention. On postoperative day 6, bilirubin decreased to 3.4 from 5.8. BNP continued to be high. Magnesium was replaced per IV. She was given Lasix 40 mg on postop day 7. Bilirubin remained at 3.5. Pain was controlled. Her activity was good. Lungs were improving. She did remain on 3 L of O2. On 08/09, on postoperative day 7, her bilirubin did increase to 5. The rest of her home liver function tests did increase. Dr. Tompkins was consulted and he performed an upper endoscopy under MAC sedation, which he verbally reported it was completely within normal. On 08/10/2021, multiple attempts to schedule an ERCP continued. It was started on Thursday 08/09. A CT scan was ordered and showed no change. Continued to seek facility except for an MRCP. Bilirubin remained elevated at 5.3 and the day of discharge, it was 5.4. GI specialist, Dr. Jarquin and Dr. Agosto, accepted the patient to be transferred to [place], [place] for elevation in liver function tests and ERCP. The patient is alert and stable. PHYSICAL EXAMINATION: VITAL SIGNS: Paul Campbell is a pleasant 75-year-old female. Height is 5 feet 2.99 inches, weight is 191 pounds. BMI is 33. TPR is 95.8, 59, 18, blood pressure 117/52. HEENT: Negative. NECK: Supple. HEART: Regular rate and rhythm. LUNGS: Have shown improvement. Bases are clear. Better air exchange. Rhonchi with coughing. ABDOMEN: Iaeger were removed. Steri-Strips applied. Soft, nondistended, and nontender. EXTREMITIES: Virtually there is no peripheral edema, but you can see the elastic of her stockings above her ankles. NEURO: Intact. PSYCHIATRIC: Mood and affect appropriate. DISPOSITION: Discharge to a higher level of care for ERCP. Accepting physician, Dr. Agosto. CURRENT MEDICATIONS: To resume current medication. To follow up with Alexandra Lazo PA-C, in 2 weeks, on 08/25/2021, at 11:00 a.m. DIET: Step 2 gastric bypass diet. ACTIVITY: No lifting greater than 10 pounds for 6 weeks. Wound incision care. May shower. Wear abdominal binder for 2 weeks if tolerated. The patient is discharged to a higher facility when available via ground ambulance. /[id number]
[2021-08-11] MEDS: Lactated Ringers 1,000 ML IV SCH (16:32)
== END 2021-08-11 19:42 | disposition other institution (70) | DRG 326 ==
LOC: JP.MS 00:25
PROVIDERS: ADMIT Surgery; ATTEND Surgery
PROC: 0DB80ZZ Excision of Small Intestine, Open Approach (ICD-10-PCS; principal; 2021-08-01)
PROC: 0DB60ZZ Excision of Stomach, Open Approach (ICD-10-PCS; 2021-08-01)
PROC: 0DS80ZZ Reposition Small Intestine, Open Approach (ICD-10-PCS; 2021-08-01)
PROC: 0WQF0ZZ Repair Abdominal Wall, Open Approach (ICD-10-PCS; 2021-08-01)
PROC: 0WQF0ZZ Repair Abdominal Wall, Open Approach (ICD-10-PCS; 2021-08-01)
PROC: 0D960ZZ Drainage of Stomach, Open Approach (ICD-10-PCS; 2021-08-01)
DX: K95.89 Other complications of other bariatric procedure (principal); K56.2 Volvulus; K43.0 Incisional hernia with obstruction, without gangrene; K42.0 Umbilical hernia with obstruction, without gangrene; J90 Pleural effusion, not elsewhere classified; K91.2 Postsurgical malabsorption, not elsewhere classified; R79.89 Other specified abnormal findings of blood chemistry; E53.8 Deficiency of other specified B group vitamins; E78.00 Pure hypercholesterolemia, unspecified; F17.210 Nicotine dependence, cigarettes, uncomplicated; K83.8 Other specified diseases of biliary tract; E11.9 Type 2 diabetes mellitus without complications; I10 Essential (primary) hypertension; E55.9 Vitamin D deficiency, unspecified; Z79.899 Other long term (current) drug therapy; E86.0 Dehydration
CPT/HCPCS: 36415; 71046; 71046-26; 74177; 74177-26; 74181; 74181-26; 74240; 74240-26; 80053; 82728; 83735; 83880; 84100; 85025; 85027; 88302; 88305; 93005; 94640; 94667; 94668; 94762; 97110-GP; 97161-GP; 97530-GP; 97535-GP; A9270-GY; C9113; J0171; J0330; J0694; J1100; J1170; J1200; J1644; J1940; J1956; J2185; J2405; J2704; J2710; J2795; J3010; J3410; J3411; J3420; J3475; J3490; J7050; J7120; J7121; J7620-GY; P9047; Q9967